=== PATIENT | female | born 1945 | race Caucasian/White ===

== ENCOUNTER 2017-01-12 13:07 | Day surgery (SDC) | payer MEDICARE, BC ==
[2017-01-12] MEDS ORDERED: Lidocain 1% EPI 1:100,000 * 30 ML MDV ONE (13:24)
[2017-01-12] MEDS ORDERED: Bupivacaine 0.25% SDV* 30 ML ONE (15:34)
[2017-01-12 16:24] VITALS: BP 134/63
--- NOTE | 2017-01-13 05:01 | OP ---
DATE OF OPERATION: 01/12/17 [facility] DATE OF : 47 SURGEON: Luis Roca MD SALES REPRESENTATIVE LIVESTOCK: YUSRA Gonzalez ANESTHESIOLOGIST: None. ANESTHESIA: Local only with 1% lidocaine with epinephrine and bicarbonate. PRE-OP DIAGNOSIS: Left wrist de Quervain's tenosynovitis. POST-OP DIAGNOSIS: Left wrist de Quervain's tenosynovitis. OPERATIVE PROCEDURE: Left wrist de Quervain's release with first dorsal compartment tenosynovectomy. INDICATIONS: Xenia is a 71-year-old woman, whom I had been following for de Quervain's disease for a while. I gave her an injection and she got almost completely better. Several months later, she came back to the office stating that the pain had come back and it was the same as it was prior to the injection. We talked about doing another injection versus surgery, she wanted to have de Quervain's release since we talked about risks and benefits. ESTIMATED BLOOD LOSS: 5 mL. COMPLICATIONS: None. FINDINGS: As expected, significant degeneration and fraying of the first dorsal compartment tendons and extensive tenosynovitis. DESCRIPTION OF PROCEDURE: Xenia was seen in the preoperative holding area, the correct site, side, and procedure were identified. We had a time-out, then I anesthetized the operative area with 1% lidocaine with epinephrine and bicarbonate. A short while later, we came back to the operating room, and the arm was prepped and draped in the usual fashion. A formal time-out was performed. I began by making a 2-cm transverse incision in line with the skin lines just proximal to the radial styloid over the first dorsal compartment. Dissection was carried down bluntly and full thickness flaps were raised right off the tendon sheath to protect the traversing radial sensory nerves. Under direct visualization, I then released the first dorsal compartment tendon sheath off the dorsal aspect. No accessory compartment was noted. There was abundant tenosynovitis; this was excised. There was significant fraying of the tendons. This was debrided. Once I had completed the release proximally and distally and was satisfied with release, I went ahead and irrigated out the wound. The skin was closed with 4-0 nylon suture. The operative area was infiltrated with 0.25% Marcaine. The wound was dressed with Xeroform, 4x4, sterile Webril, and an Kolton wrap. She was then taken to the recovery room in stable condition. [id number]/[facility] #: [id number] MARÍA ELENA
== END 2017-01-12 16:26 | disposition home or self-care (01) ==
LOC: OREAST 13:07
PROVIDERS: ATTEND Orthopaedic Surgery Hand Surgery
DX: M65.4 Radial styloid tenosynovitis [de Quervain] (principal)
CPT/HCPCS: 88304